=== PATIENT | male | born 2000 | race Caucasian/White ===

== ENCOUNTER 2025-01-19 08:20 | Outpatient (REF) | payer OTHER, SELFPAY ==
--- NOTE | ~2025-01-19 | XR_ITS ---
EXAMINATION: XR KNEE, RIGHT CLINICAL INFORMATION: M25.561 - Pain in right knee COMPARISON: None available. TECHNIQUE: AP and lateral views of the right knee. FINDINGS: There is no joint effusion. There is mild narrowing of the medial greater than lateral joint spaces. Intercondylar tubercles are peaked. XR/XR knee RT 2V IMPRESSION: Mild changes of osteoarthritis. Electronically signed by: Blayne Cano MD 01/19/2025 11:01 AM EDT
[2025-01-19 13:17] LABS: Appearance Urine Turbid; Glucose Urine UA Negative (Negative); PH 5.5 (5.0-9.0); Specific Gravity - Urine 1.020 (1.005-1.025)
[2025-01-19 13:31] LABS: MANUAL DIFF FLAG NO
[2025-01-19 13:47] LABS: Hematocrit 46.8 % (42.0-52.0); Hemoglobin 14.2 g/dl (14.0-18.0); Imm Gran Abs Auto 0.03 X10*3/uL (0.00-0.03); Imm Gran Pct Auto 0.5 % (0.0-0.4); Lymphocytes Absolute Auto 2.0 X10*3/uL (1.2-4.9); Mean Corpuscular HGB Conc 30.3 g/dl (31.0-36.0); Mean Corpuscular Hemoglobin 23.6 pg (27.0-33.0); Mean Corpuscular Volume 77.7 fL (80.0-98.0); NRBC Abs Auto 0.000 X10*3/uL (0.0-0.012); NRBC Pct Auto 0.0 /100WBC (0.0-0.2); Platelet Count 233 X10*3/uL (160-400); Red Blood Count 6.02 X10*6/uL (4.60-5.80); White Blood Count 6.6 X10*3/uL (4.8-10.8)
[2025-01-19 13:50] LABS: Alanine Aminotransferase 69 U/L (0-40); Albumin Level 4.4 g/dL (3.5-5.0); Alkaline Phosphatase 78 U/L (39-117); Anion Gap 12 (12-20); Aspartate Amino Transferase 49 U/L (5-37); Blood Urea Nitrogen 7 mg/dL (9-16); Calcium 8.8 mg/dL (8.4-10.2); Carbon Dioxide 25 mmol/L (22-29); Chloride 109 mmol/L (96-108); Cholesterol 192 mg/dL (<200); Estimated Glomerular Filt Rate > 60; HDL Cholesterol 35 mg/dL (>40); Potassium 4.5 mmol/L (3.3-5.1); Sodium 141 mmol/L (135-145); Total Protein 7.5 g/dL (6.5-8.0); Triglycerides 121 mg/dL (<150)
[2025-01-19 13:56] LABS: Hemoglobin A1C 148.4816 umol/L
[2025-01-19 13:56] LABS: Microalbum/Creatinine Ratio Ur 6.3 ug/mg cr (<30)
== END 2025-01-19 08:21 | disposition home or self-care (01) ==
LOC: HO.HMGCX 08:20
PROVIDERS: PCP Internal Medicine; Visit Provider Internal Medicine
DX: Z00.00 Encounter for general adult medical examination without abnormal findings (principal); G89.29 Other chronic pain; M25.561 Pain in right knee; R73.9 Hyperglycemia, unspecified; Z13.31 Encounter for screening for depression; Z13.39 Encounter for screening examination for other mental health and behavioral disorders
CPT/HCPCS: 36415; 73560; 80053; 80061; 81001; 82043; 82570; 83036; 85025; 96127

== ENCOUNTER 2025-01-19 08:20 | Outpatient (AMB) | payer OTHER, SELFPAY ==
--- NOTE | 2025-01-19 08:24 | MHC.PC.OV ---
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 The pain is worse when patient is standing for long time. He denies pain at rest and usually walking improves the pain. [facility] Medical History (Updated 04/22/25 @ 10:43 by Moriah Dyson MD) Knee pain, right Morbid obesity Sleep apnea Annual physical exam Hyperglycemia Surgical History No pertinent past surgical history Family History Father Hypertension Mother No problems noted. 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 1. Little interest or pleasure in doing things: several days 2. Feeling down, depressed, or hopeless: several days 3. Trouble falling or staying asleep, or sleeping too much: several days 4. Feeling tired or having little energy: more than half the days 5. Poor appetite or overeating: more than half the days 6. Feeling bad about yourself - or that you are a failure or have let yourself or your family down: several days 7. Trouble concentrating on things, such as reading the newspaper or watching television: several days 8. Moving or speaking so slowly that other people could have noticed. Or the opposite - being so fidgety or restless that you have been moving around a lot more than usual: several days 9. Thoughts that you would be better off or of hurting yourself in some way: not at all Total score: 10 Depression Screening Interpretation: Positive (Patient declined counseling or medications) Depression Screening Follow-up: Existing condition Depression Screening Done: Yes 13059 - PHQ-9 Billing: Yes Source: Developed by Drs. Taco Pastrana, Zhane Pritchett, Santi Lambert and colleagues, with an educational neha from [employer]. Thrive Questionnaire Date Thrive assessed: 01/19/25 I am a: Patient What is your living situation today?: I have a steady place to live Within the past 12 months, did the food you bought not last and you didn't have the money to get more?: Never true Within the past 12 months, did you worry whether your food would run out before you got money to buy more?: Never true Do you have trouble paying for medicines?: No Do you have trouble getting transportation to medical appointments?: No Do you have trouble paying your heating and electricity bill?: No Do you have trouble taking care of your child, family member or friend?: No Do you have trouble with day-to-day activities such as bathing, preparing meals, shopping, managing finances, etc.?: No Are you currently unemployed and looking for a job?: No Are you interested in more education?: No THRIVE Score: 0 AUDIT C Alcohol Use Questionnaire (AUDIT-C) 1. How often do you have a drink containing alcohol?: Never 3. How often do you have six or more drinks on one occasion?: Never Total Score: 0 HILARY-7 AMB Questionnaire HILARY-7 Date HILARY - 7 assessed: 01/19/25 Feeling nervous, anxious, or on edge: 1 = Several days Not being able to stop or control worryin = Several days Worrying too much about different things: 1 = Several days Trouble relaxin = Several days Being so restless that it is hard to sit still: 0 = Not at all Becoming easily annoyed or irritable: 0 = Not at all Feeling afraid as if something awful might happen: 1 = Several days Total HILARY-7 score (0-4 normal; 5-9 mild; 10-14 moderate; 15-21 severe): 5 Source: Developed by Drs. Taco Pastrana, Zhane Pritchett, Santi Lambert and colleagues, with an educational neha from [employer]. HILARY-7 Assessment Billing HILARY-7 Assessment Tool: HILARY-7 Assessment 70358 Review of Systems Const All systems reviewed & are unremarkable except as noted in HPI and below Reports no additional complaints Eyes Reports no additional complaints ENT Reports no additional complaints Card Reports no additional complaints Resp Reports no additional complaints GI Reports no additional complaints Reports no additional complaints Physical exam (Primary Care) Vital Signs: Last Vital Signs Temp 98.5 F 01/19/25 08:25 Pulse 90 01/19/25 08:25 Resp 18 01/19/25 08:25 BP 138/82 01/19/25 08:25 Pulse Ox 98 01/19/25 08:25 Oxygen Delivery Method Room Air 01/19/25 08:25 BMI result Body Mass Index 61.3 Tobacco/Smoking Status: Tobacco use Status Tobacco use date assessed 01/19/25 01/19/25 08:35 Patient Tobacco Use Status Never used Tobacco 01/19/25 08:51 e-Cigarette/Vaping Use Never Used 01/19/25 08:51 PHQ-9: PHQ-9 Score PHQ-9: Total score 10 01/19/25 09:40 Depression Screening Interpretation: Positive (Patient declined counseling or medications) Depression Screening Follow-up: Existing condition Thrive Assessment: Date of Thrive Assessment Date Thrive assessed 01/19/25 01/19/25 09:40 Const General: no acute distress HENMT Head: Yes normal to inspection Face and sinus: Yes normal facial exam Throat: Yes posterior oropharynx normal Eyes General: appearance normal, both eyes and all related structures Neck Neck: Yes supple Resp Effort & Inspection: normal respiratory effort Auscultation: clear to auscultation bilaterally Cardio Rhythm: regular rhythm Heart sounds: S1 normal heart sound present and S2 normal heart sound present GI Inspection: Yes normal to inspection Palpation (GI): Soft to palpation Percussion: Yes normal to percussion Auscultation: normal bowel sounds Extrem Other: There is a slightly decreased range of motion and medial aspect tenderness of the right knee, no soft tissue swelling erythema or warmth General: Yes no clubbing, cyanosis or edema Coding Level of Care Code New Pt Prev Care 18-39yr(43322 Diagnoses Annual physical exam Z00.00 Additional Codes HILARY-7 Assessment Billing - HILARY-7 Assessment Tool: HILARY-7 Assessment 90070 ([id number]) PHQ-9 - 06887 - PHQ-9 Billing: Yes ([id number]) Assessment & Plan Assessment & Plan (1) Annual physical exam: Code(s): Z00. - Encounter for general adult medical examination without abnormal findings Category: Medical Plan: Well-balanced diet increase physical activity weight loss discussed with the patient he will have a fasting blood work. For chronic right knee pain x-ray will be obtained and patient will be referred to physical therapy. Orders: Orders Hemoglobin A1c 01/19/25 R73.9 - Hyperglycemia, unspecified, Z00.00 - Encounter for general adult medical examination without abnormal findings Microalbumin, Random (w Creat) 01/19/25 R73.9 - Hyperglycemia, unspecified, Z00.00 - Encounter for general adult medical examination without abnormal findings UA w Microscopic 01/19/25 R73.9 - Hyperglycemia, unspecified, Z00.00 - Encounter for general adult medical examination without abnormal findings XR knee RT 2V 01/19/25 M25.561 - Pain in right knee PT Evaluation and Treatment 01/19/25 M25.561 - Pain in right knee Comprehensive [place]. Panel Fast 01/19/25 R73.9 - Hyperglycemia, unspecified, Z00.00 - Encounter for general adult medical examination without abnormal findings Complete Blood Count Auto Diff 01/19/25 R73.9 - Hyperglycemia, unspecified, Z00.00 - Encounter for general adult medical examination without abnormal findings Lipid Panel 01/19/25 R73.9 - Hyperglycemia, unspecified, Z00.00 - Encounter for general adult medical examination without abnormal findings
[2025-01-19 08:25] VITALS: BP 138/82; PULSE 90; RESP 18; TEMP 36.9; O2SAT 98; BMI 61.3
--- OUTSIDE RECORDS SUMMARY | 2025-01-19 08:39 | XMS_ITS ---
Author Name [facility] Organization Unknown Care Team Organization Name Specialty Phone Email Start Date End Da te [facility] 01/31/2022 11/12/2023
== END 2025-01-19 09:35 | disposition home or self-care (01) ==
PROVIDERS: Visit Provider Internal Medicine
DX: Z00.00 Encounter for general adult medical examination without abnormal findings (principal)

== ENCOUNTER → 2025-01-19 09:54 | Outpatient (BNV) | payer OTHER, SELFPAY | PROVIDERS: PCP Internal Medicine; Visit Provider Radiology Diagnostic Radiology | DX: M25.561 Pain in right knee (principal) | CPT/HCPCS: 73560 ==